=== PATIENT | male | born 1950 | race Caucasian/White ===

== ENCOUNTER 2017-04-05 16:05 | Emergency (ER) | payer OTHER ==
[~2017-04-05] VITALS: Ht 180.3 cm; Wt 63.2 kg
[~2017-04-05 16:05] MED LIST: ADVAIR 250/501 DISK IH; ADVAIR 500/501 DISK IH; ALBUTEROL INHALER; BACTRIM,SEPT1 TABLET PO; COMBIVENT RESPIM4 GM IH; DELTASONE10 MG PO; DELTASONE20 M1 PO; DUONEB 2.5-0.5 M3 ML AEROSOL; IRON325 MG PO; LEVAQUIN500 MG PO; LEVOFLOXACIN500 MG PO; LEVOFLOXACIN750 MG PO; LOPRESSOR25 MG PO; Levaquin PO; MEDROL DOSEPAK4 MG PO; PREDNISONE10 MG PO; PREDNISONE20 MG PO; PROVENTIL,2.5 MG/0.5 IH; Robitussin, Organidi PO; SINGULAIR10 MG PO; SPIRIVA1 INHALATI IH; SYMBICORT60 INHALA1 IH; SYMBICORT60 INHALAT IH; Symbicort 160-4.5 mc IH; TAMSULOSIN HCL0.4 MG PO; THEO-DUR,THEOC200 MG PO; TYLENOL EXTRA500 MG PO; VENTOLIN HFA18 GM IH; VITAMIN D-32000 UNI2 PO; Zocor PO; celeXA PO
[2017-04-05 16:47] LABS: HEMATOCRIT 43.5 % (38.0-50.0); MCH 29.4 PG (29.0-34.0); MCHC 32.9 G/DL (30.0-36.0); MCV 89.5 FL (86-99); MEAN PLAT.VOLUME 10.7 uM^3 (9.0-12.4); PLATELET COUNT 194 K/uL (156-360); RBC DIS.WIDTH-CV 12.4 % (11.8-14.6); RBC DIS.WIDTH-SD 40.9 % (39-53); RED BLOOD COUNT 4.86 M/uL (4.00-5.50)
[2017-04-05 16:58] LABS: CHLORIDE 100 mEq/L (99-109); POTASSIUM 4.4 mEq/L (3.7-5.4); SODIUM 136 mEq/L (136-147)
[2017-04-05 17:00] LABS: GLUCOSE 182 mg/dL (70-99)
[2017-04-05 17:02] LABS: ANION GAP 12 MEQ/L (2-14)
[2017-04-05 17:04] LABS: GFR ESTIMATE (CALCULATED) 50 mL/min/
[2017-04-05 17:05] LABS: UREA NITROGEN (BUN) 28 mg/dL (9-23)
[2017-04-05 17:09] LABS: TROP-I INTERPRETATION NEGATIVE; TROPONIN-I < 0.01 ng/mL (0.0-0.30)
[2017-04-05] MEDS ORDERED: PREDNISONE50 MG PO (18:55)
[2017-04-05] MEDS ORDERED: ZITHROMAX Z-PA250 MG PO (18:56)
[2017-04-05 19:26] VITALS: BP 103/68
== END 2017-04-05 19:28 | disposition home or self-care (01) ==
LOC: EME 16:05
DX: J44.1 Chronic obstructive pulmonary disease with (acute) exacerbation (principal); Z99.81 Dependence on supplemental oxygen; Z87.891 Personal history of nicotine dependence
CPT/HCPCS: 80048; 84484; 85027; 93005; 94640; 99281; 99285; J2930

== ENCOUNTER 2017-12-15 15:40 | Inpatient (IN) | payer OTHER ==
[~2017-12-15] VITALS: Ht 180.3 cm; Wt 60.3 kg
[~2017-12-15 15:40] MED LIST changes: +ALBUTEROL2.5 MG/3 M IH; +PREDNISONE50 MG PO; +ZITHROMAX Z-PA250 MG PO
[2017-12-15 16:48] LABS: HEMATOCRIT 41.3 % (38.0-50.0); HEMOGLOBIN 14.2 G/DL (12.5-16.6); MCHC 34.4 G/DL (30.0-36.0); MCV 87.1 FL (86-99); PLATELET COUNT 217 K/uL (156-360); RBC DIS.WIDTH-CV 12.6 % (11.8-14.6); RBC DIS.WIDTH-SD 40.2 % (39-53); RED BLOOD COUNT 4.74 M/uL (4.00-5.50); WHITE BLOOD COUNT 10.2 K/uL (4.1-10.2)
[2017-12-15 16:55] LABS: ALBUMIN 4.4 g/dL (3.2-4.8)
[2017-12-15 16:56] LABS: CHLORIDE 103 mEq/L (99-109); POTASSIUM 4.2 mEq/L (3.7-5.4); SODIUM 138 mEq/L (136-147)
[2017-12-15 16:58] LABS: GLUCOSE 112 mg/dL (70-99); TOTAL PROTEIN 7.7 g/dL (6.4-8.3)
[2017-12-15 17:00] LABS: TOTAL BILIRUBIN 0.7 mg/dL (0.0-1.0)
[2017-12-15 17:01] LABS: ALKALINE PHOSPHATASE 90 IU/L (3-129)
[2017-12-15 17:02] LABS: CREATININE 1.3 mg/dL (0.6-1.3); GFR ESTIMATE (CALCULATED) 59 mL/min/ (58.99-99999)
[2017-12-15 17:03] LABS: AST (GOT) 20 IU/L (2-34); UREA NITROGEN (BUN) 31 mg/dL (9-23)
[2017-12-15 17:04] LABS: ALT (GPT) 13 IU/L (3-49)
[2017-12-15 17:32] LABS: AMYLASE 164 IU/L (1-118)
[2017-12-15 17:41] LABS: LIPASE 52 U/L (1.0-51.0)
[2017-12-15 20:57] LABS: TROP-I INTERPRETATION NEGATIVE; TROPONIN-I < 0.01 ng/mL (0.0-0.30)
[2017-12-15] MEDS ORDERED: PRAVACHOL40 MG PO (21:45)
[2017-12-15] MEDS ORDERED: THEOPHYLLINE400 MG PO (21:46)
[2017-12-15] MEDS ORDERED: PREVACID 24HR15 MG PO (21:46)
[2017-12-15 23:04] VITALS: BP 151/71
[2017-12-15 23:52] LABS: TROP-I INTERPRETATION NEGATIVE; TROPONIN-I < 0.01 ng/mL (0.0-0.30)
[2017-12-16 03:20] VITALS: BP 98/52
[2017-12-16 05:42] LABS: BASOPHIL (%) 0.4 % (0-1); EOSINOPHIL (%) 0.2 % (0-5); HEMATOCRIT 38.7 % (38.0-50.0); HEMOGLOBIN 12.8 G/DL (12.5-16.6); IMMATURE GRANULOCYTE (%) 0.4 % (0.0-0.7); LYMPHOCYTE (%) 9.3 % (15-42); LYMPHOCYTE COUNT 0.8 K/uL (1.0-2.8); MCHC 33.1 G/DL (30.0-36.0); MCV 87.6 FL (86-99); MONOCYTE COUNT 0.2 K/uL (0-0.8); NEUTROPHIL (%) 86.7 % (45-76); PLATELET COUNT 192 K/uL (156-360); RBC DIS.WIDTH-CV 12.9 % (11.8-14.6); RBC DIS.WIDTH-SD 41.5 % (39-53); RED BLOOD COUNT 4.42 M/uL (4.00-5.50); WHITE BLOOD COUNT 8.1 K/uL (4.1-10.2)
[2017-12-16 06:46] LABS: ALKALINE PHOSPHATASE 71 IU/L (3-129); ALT (GPT) 10 IU/L (3-49); AST (GOT) 16 IU/L (2-34); CHLORIDE 103 MEQ/L (99-109); CREATININE 1.1 MG/DL (0.6-1.3); GFR ESTIMATE (CALCULATED) > 59 mL/min/ (58.99-99999); GLUCOSE 162 mg/dL (70-99); SODIUM 137 MEQ/L (136-147); TOTAL BILIRUBIN 0.6 MG/DL (0.0-1.0); TOTAL PROTEIN 6.6 G/DL (6.4-8.3); UREA NITROGEN (BUN) 23 mg/dL (9-23)
[2017-12-16 08:34] VITALS: BP 104/65
[2017-12-16 11:26] VITALS: BP 97/58
[2017-12-16 16:14] VITALS: BP 94/57
[2017-12-16 19:26] VITALS: BP 108/66
[2017-12-17 00:16] VITALS: BP 93/54
[2017-12-17 04:34] VITALS: BP 93/54
[2017-12-17 07:04] VITALS: BP 107/59
[2017-12-17 11:02] VITALS: BP 93/55
[2017-12-17] MEDS ORDERED: PREDNISONE10 MG PO (14:30)
[2017-12-17] MEDS ORDERED: AZITHROMYCIN500 M1 PO (14:30)
[2017-12-17] MEDS ORDERED: ASPIR-LOW81 MG PO (14:30)
== END 2017-12-17 16:39 | disposition home or self-care (01) | DRG 190 ==
LOC: EME 15:40 → EDOF 21:49 → 5WEST 21:49 → EDOF 21:49 → ENRESERV 21:51 → 5WEST 22:51
PROVIDERS: Internal Medicine
DX: J44.0 Chronic obstructive pulmonary disease with (acute) lower respiratory infection (principal); J20.9 Acute bronchitis, unspecified; J44.1 Chronic obstructive pulmonary disease with (acute) exacerbation; J96.21 Acute and chronic respiratory failure with hypoxia; I77.72 Dissection of iliac artery; I72.3 Aneurysm of iliac artery; Z99.81 Dependence on supplemental oxygen; R91.1 Solitary pulmonary nodule; I10 Essential (primary) hypertension; E78.5 Hyperlipidemia, unspecified; I70.8 Atherosclerosis of other arteries; K21.9 Gastro-esophageal reflux disease without esophagitis; N40.1 Benign prostatic hyperplasia with lower urinary tract symptoms; R33.8 Other retention of urine; Z87.891 Personal history of nicotine dependence
CPT/HCPCS: 71250; 74177; 80053; 80198; 81003; 82150; 83605; 83690; 83880; 84484; 85025; 85027; 93005; 94640; 94640 76; 94799; 99202; 99281; 99285; C9113; G0378; J1644; J2920; J3010; J7030

== ENCOUNTER 2018-02-04 07:36 | Inpatient (IN) | payer OTHER ==
[~2018-02-04] VITALS: Ht 180.3 cm; Wt 63.7 kg
[~2018-02-04 07:36] MED LIST changes: +ASPIR-LOW81 MG PO; +AZITHROMYCIN500 M1 PO; +PRAVACHOL40 MG PO; +PREVACID 24HR15 MG PO; +THEOPHYLLINE400 MG PO
[2018-02-04 08:31] LABS: BASOPHIL (%) 0.7 % (0-1); BASOPHIL COUNT 0.1 K/uL (0-0.1); EOSINOPHIL (%) 2.5 % (0-5); EOSINOPHIL COUNT 0.3 K/uL (0-0.3); HEMOGLOBIN 13.5 G/DL (12.5-16.6); IMMATURE GRANULOCYTE (%) 0.6 % (0.0-0.7); LYMPHOCYTE (%) 10.2 % (15-42); LYMPHOCYTE COUNT 1.2 K/uL (1.0-2.8); MCH 29.3 PG (29.0-34.0); MCHC 33.8 G/DL (30.0-36.0); MONOCYTE (%) 8.1 % (3-12); NEUTROPHIL (%) 77.9 % (45-76); NEUTROPHIL COUNT 9.4 K/uL (1.8-6.4); PLATELET COUNT 245 K/uL (156-360); RBC DIS.WIDTH-SD 40.9 % (39-53); WHITE BLOOD COUNT 12.1 K/uL (4.1-10.2)
[2018-02-04 08:39] LABS: CHLORIDE 105 mEq/L (99-109); POTASSIUM 4.5 mEq/L (3.7-5.4); SODIUM 141 mEq/L (136-147)
[2018-02-04 08:42] LABS: GLUCOSE 104 mg/dL (70-99); TOTAL PROTEIN 7.4 g/dL (6.4-8.3)
[2018-02-04 08:43] LABS: TOTAL BILIRUBIN 0.4 mg/dL (0.0-1.0)
[2018-02-04 08:45] LABS: ALKALINE PHOSPHATASE 98 IU/L (3-129); CREATININE 1.2 mg/dL (0.6-1.3); GFR ESTIMATE (CALCULATED) > 59 mL/min/ (58.99-99999)
[2018-02-04 08:46] LABS: UREA NITROGEN (BUN) 24 mg/dL (9-23)
[2018-02-04 08:47] LABS: AST (GOT) 28 IU/L (2-34)
[2018-02-04 08:48] LABS: ALT (GPT) 18 IU/L (3-49)
[2018-02-04 08:52] LABS: TROP-I INTERPRETATION NEGATIVE; TROPONIN-I < 0.01 ng/mL (0.0-0.30)
[2018-02-04] MEDS ORDERED: CEFDINIR300 MG PO (12:38)
[2018-02-04 13:57] VITALS: BP 104/60
[2018-02-04 19:26] VITALS: BP 88/50
[2018-02-04 20:39] LABS: BASOPHIL (%) 0.4 % (0-1); EOSINOPHIL (%) 0.1 % (0-5); HEMATOCRIT 37.9 % (38.0-50.0); HEMOGLOBIN 12.5 G/DL (12.5-16.6); IMMATURE GRANULOCYTE (%) 0.9 % (0.0-0.7); LYMPHOCYTE (%) 5.8 % (15-42); LYMPHOCYTE COUNT 0.6 K/uL (1.0-2.8); MCV 87.9 FL (86-99); MONOCYTE (%) 0.8 % (3-12); MONOCYTE COUNT 0.1 K/uL (0-0.8); NEUTROPHIL COUNT 9.1 K/uL (1.8-6.4); PLATELET COUNT 249 K/uL (156-360); RBC DIS.WIDTH-CV 13.2 % (11.8-14.6); RBC DIS.WIDTH-SD 42.3 % (39-53); RED BLOOD COUNT 4.31 M/uL (4.00-5.50); WHITE BLOOD COUNT 9.9 K/uL (4.1-10.2)
[2018-02-04 20:52] LABS: INTER. NORMALIZED RATIO 1.3
[2018-02-04 21:02] LABS: ALKALINE PHOSPHATASE 79 IU/L (3-129); ALT (GPT) 17 IU/L (3-49); AST (GOT) 23 IU/L (2-34); CHLORIDE 101 MEQ/L (99-109); CREATININE 1.5 MG/DL (0.6-1.3); GFR ESTIMATE (CALCULATED) 50 mL/min/ (58.99-99999); POTASSIUM 4.3 MEQ/L (3.7-5.4); SODIUM 137 MEQ/L (136-147); TOTAL BILIRUBIN 0.4 MG/DL (0.0-1.0); TOTAL PROTEIN 7.4 G/DL (6.4-8.3); UREA NITROGEN (BUN) 28 mg/dL (9-23)
[2018-02-04 21:05] VITALS: BP 88/58
[2018-02-04 21:05] LABS: GLUCOSE 165 mg/dL (70-99)
[2018-02-04 21:33] LABS: COMMENTS - BLOOD GASES A+C+; DEVICE NC; O2 FLOW 3 L/MIN; SITE LR; pH 7.43 (7.35-7.45)
[2018-02-04 21:34] LABS: BASE EXCESS -0.7 mEq/L (-3 to +3); BICARBONATE 23.2 mEq/L (22-26); CARBOXY HGB 1.2 % (0-5); O2 SATURATION (CALCULATED) 96.4 % (95-99); PCO2 35 mm Hg (35-45); PO2 69 mm Hg (80-100)
[2018-02-04 23:23] VITALS: BP 91/50
[2018-02-05 00:42] LABS: ERTH.SED.RATE 79 MM/HR (0-20)
[2018-02-05 03:57] LABS: APPEARANCE CLEAR ((CLEAR)); BILIRUBIN NEGATIVE; BLOOD NEGATIVE; COLOR YELLOW ((YELLOW)); GLUCOSE (STRIP) NEGATIVE; KETONES NEGATIVE; LEUKOCYTES NEGATIVE; NITRITE NEGATIVE; PROTEIN (STRIP) NEGATIVE; SPECIFIC GRAVITY 1.025 (1.000-1.030); UCUL ADDED? NO; UROBILINOGEN 0.2 MG/DL (0.2-1.0)
[2018-02-05 04:30] VITALS: BP 103/58
[2018-02-05 05:25] LABS: HEMATOCRIT 30.7 % (38.0-50.0); HEMOGLOBIN 10.2 G/DL (12.5-16.6); MCH 29.1 PG (29.0-34.0); MCHC 33.2 G/DL (30.0-36.0); MCV 87.5 FL (86-99); PLATELET COUNT 208 K/uL (156-360); RBC DIS.WIDTH-CV 13.2 % (11.8-14.6); RBC DIS.WIDTH-SD 41.6 % (39-53); RED BLOOD COUNT 3.51 M/uL (4.00-5.50); WHITE BLOOD COUNT 6.2 K/uL (4.1-10.2)
[2018-02-05 05:55] LABS: CHLORIDE 106 MEQ/L (99-109); CREATININE 1.1 MG/DL (0.6-1.3); GFR ESTIMATE (CALCULATED) > 59 mL/min/ (58.99-99999); GLUCOSE 137 mg/dL (70-99); SODIUM 141 MEQ/L (136-147); THEOPHYLLINE 5.4 MCG/ML (10-20); UREA NITROGEN (BUN) 22 mg/dL (9-23)
[2018-02-05 07:50] VITALS: BP 111/58
[2018-02-05 10:23] LABS: HEMOGLOBIN A1c (GLYCOHEMOGLOB) 5.9 % (Below 5.7)
[2018-02-05 11:26] LABS: TROP-I INTERPRETATION NEGATIVE; TROPONIN-I < 0.01 ng/mL (0.0-0.30)
[2018-02-05 17:30] VITALS: BP 103/59
[2018-02-05 20:43] VITALS: BP 104/59
[2018-02-06 00:42] VITALS: BP 105/61
[2018-02-06 05:18] VITALS: BP 107/57
[2018-02-06 07:43] VITALS: BP 112/58
[2018-02-06 11:57] VITALS: BP 92/60
[2018-02-06 17:06] VITALS: BP 108/58
[2018-02-06 20:40] VITALS: BP 132/77
[2018-02-07] VITALS (7 sets, daily range): BP systolic 90–117; BP diastolic 51–64
[2018-02-07 09:18] LABS: BASOPHIL (%) 0.1 % (0-1); EOSINOPHIL (%) 0 % (0-5); HEMATOCRIT 29.9 % (38.0-50.0); HEMOGLOBIN 9.7 G/DL (12.5-16.6); IMMATURE GRANULOCYTE (%) 1.2 % (0.0-0.7); LYMPHOCYTE (%) 5.2 % (15-42); LYMPHOCYTE COUNT 0.5 K/uL (1.0-2.8); MCH 28.7 PG (29.0-34.0); MCHC 32.4 G/DL (30.0-36.0); MCV 88.5 FL (86-99); MONOCYTE (%) 2.9 % (3-12); MONOCYTE COUNT 0.3 K/uL (0-0.8); NEUTROPHIL (%) 90.6 % (45-76); NEUTROPHIL COUNT 8.2 K/uL (1.8-6.4); PLATELET COUNT 245 K/uL (156-360); RBC DIS.WIDTH-CV 13.9 % (11.8-14.6); RBC DIS.WIDTH-SD 44.3 % (39-53); RED BLOOD COUNT 3.38 M/uL (4.00-5.50); WHITE BLOOD COUNT 9.1 K/uL (4.1-10.2)
[2018-02-07 09:41] LABS: CHLORIDE 105 MEQ/L (99-109); GFR ESTIMATE (CALCULATED) > 59 mL/min/ (58.99-99999); GLUCOSE 134 mg/dL (70-99); POTASSIUM 3.6 MEQ/L (3.7-5.4); SODIUM 142 MEQ/L (136-147); UREA NITROGEN (BUN) 26 mg/dL (9-23)
[2018-02-08 03:27] VITALS: BP 97/66
[2018-02-08 07:39] VITALS: BP 117/71
[2018-02-08] MEDS ORDERED: BENZONATATE100 MG PO (10:17)
[2018-02-08] MEDS ORDERED: PREDNISONE5 MG PO (10:21)
[2018-02-08] MEDS ORDERED: ROBITUSSIN AC,T10 ML PO (10:24)
[2018-02-08 11:38] VITALS: BP 106/63
== END 2018-02-08 14:35 | disposition home or self-care (01) | DRG 190 ==
LOC: EME 07:36 → 4EAST 12:08 → EDOF 12:08 → 4SOUTH 12:08 → ENRESERV 12:10 → 4SOUTH 13:39 → ENRESERV 21:32 → 4EAST 23:41
PROVIDERS: Emergency Medicine; Hospitalist; Internal Medicine; Physician Assistant Medical
DX: J44.1 Chronic obstructive pulmonary disease with (acute) exacerbation (principal); J96.21 Acute and chronic respiratory failure with hypoxia; E87.2 Acidosis; N14.1 Nephropathy induced by other drugs, medicaments and biological substances; N17.9 Acute kidney failure, unspecified; T50.8X5A Adverse effect of diagnostic agents, initial encounter; R79.1 Abnormal coagulation profile; R73.9 Hyperglycemia, unspecified; G43.909 Migraine, unspecified, not intractable, without status migrainosus; F70 Mild intellectual disabilities; I10 Essential (primary) hypertension; E78.5 Hyperlipidemia, unspecified; K21.9 Gastro-esophageal reflux disease without esophagitis; Z79.82 Long term (current) use of aspirin; Z99.81 Dependence on supplemental oxygen; Z87.891 Personal history of nicotine dependence
CPT/HCPCS: 36600; 71046; 71250; 74177; 78582; 80048; 80053; 80198; 81003; 82803; 82948; 83036; 83605; 83880; 84145 90; 84484; 85025; 85025 91; 85027; 85379; 85610; 85651; 87040; 87070; 87205; 93005; 94640; 94640 76; 94799; 99202; 99281; 99284; A9540; A9567; J0456; J1650; J1815; J1956; J2060; J2270; J2543; J2920; J2930; J3370; J7040; J7050; J7120